=== PATIENT | female | born 1985 | race American Indian/Alaskan Native ===

== ENCOUNTER 2018-02-10 10:27 | Emergency (ER) | payer OTHER ==
[2018-02-10 10:34] VITALS: BP 130/84
[2018-02-10] MEDS ORDERED: ANTIVERT PO ONE (12:08)
--- NOTE | 2018-02-10 12:08 | Emergency Department Report ---
Minor Respiratory - HPI Chief Complaint: Dizziness Stated Complaint: BLURRED VISION Time Seen by Provider: 02/10/18 12:07 Duration: 1 week Pain Location: Ear (ear ache) Minor Respiratory: Yes Rhinorrhea (nasal congestion), Yes Able to Tolerate Fluids, Yes Ear Pain (bilateral at 2/10 and aching in), Yes Cough (dry cough), No Sore Throat, No Sick Contacts, No Hemoptysis, No Chest Pain, No Shortness of Breath, No Fever (dizziness) Other History: This is a 32-year-old female presents to the emergency room she says she is a patient of Dr. Solorzano and she went to the office today but he was closed. She is experiencing dizziness with upper respiratory symptoms and reports that she feels like the room is spinning around so she came to the emergency room to be treated. Pain is 2/10 to both ears and achy. She reports clogged ear sensation. [id number]-[id number] medication taken without any relief. Patient says that she has slight headache on and off but none now. Denies any shortness of breath or chest pain. Denies any nausea or vomiting or visual difficulties. Reports facial pressure ED Review of Systems ROS: Stated complaint: BLURRED VISION Other details as noted in HPI Constitutional: malaise, other (dizziness). denies: chills, fever Eyes: denies: eye pain, eye discharge, vision change ENT: ear pain, congestion. denies: throat pain, epistaxis Respiratory: cough. denies: shortness of breath, SOB with exertion, SOB at rest , stridor, wheezing Cardiovascular: denies: chest pain, palpitations, edema, syncope Gastrointestinal: denies: abdominal pain, nausea, vomiting, diarrhea Genitourinary: denies: urgency, dysuria, hematuria, discharge Musculoskeletal: denies: back pain, joint swelling, arthralgia, myalgia Skin: denies: rash, lesions Neurological: vertigo. denies: headache, weakness, paresthesias, abnormal gait ED Past Medical Hx - Past Medical History Previous Medical History?: No - Surgical History Past Surgical History?: No - Family History Family history: hypertension - Social History Smoking Status: Never Smoker Substance Use Type: None - Medications Home Medications: Home Medications Medication Instructions Recorded Confirmed Last Taken Type Azithromycin [Zithromax Z-BURT] 250 mg PO DAILY 5 Days #1 pkg 02/10/18 Unknown Rx Cetirizine HCl [ZyrTEC] 10 mg PO QDAY 21 Days #21 02/10/18 Unknown Rx tab.rapdis Fluticasone [Flonase] 1 spray NS QDAY 14 Days #1 bottle 02/10/18 Unknown Rx predniSONE [Deltasone] 50 mg PO QDAY 3 Days #3 tab 02/10/18 Unknown Rx Minor Respiratory Exam - Exam General: Vital signs noted. No distress. Alert and acting appropriately. This is a 32-year-old female well-nourished well-developed in no acute distress. HEENT: Yes Moist Mucous Membranes (uvula midline and oral airways patent), Yes Rhinorrhea (nasal congestion with erythema and clear drainage), Yes Maxillary Tenderness (tended to palpate bilaterally), No Pharyngeal Erythema, No Pharyngeal Exudates, No Conjuctival Injection, No Frontal Tenderness Ear: Neither TM Bulge (bilateral TM congested without erythema), Neither TM Erythema, Neither EAC Pain, Neither EAC Discharge Neck: Yes Supple (full range of motion and no C-spine tenderness), No Adenopathy Lungs: Yes Good Air Exchange, Yes Cough (right cough), No Wheezes, No Ronchi, No Stridor, No Labored Respirations, No Retractions, No Use of Accessory Muscles , No Other Abnormal Lung Sounds Heart: Yes Regular (regular rate and rhythm. Orthostatic blood pressure is normal.) Abdomen: Yes Normal Bowel Sounds (abdomen bowel sounds in all quadrants), No Tenderness (nontender to palpate in all quadrants) Skin: No Rash, No Edema Neurologic: Alert and oriented, no deficits. Patient alert and oriented 3, GCS is 15, no facial droop and an speech is clear and fluid. Gait is normal, negative Romberg and pronator drift. No motor or sensory deficit and she ambulates without any difficulties. Reflexes are normal Musculoskeletal: Unremarkable. No cce. + 2 pulses in all extremities, no neurovascular compromise ED Course Vital Signs 02/10/18 10:32 Temperature 98.9 F Pulse Rate 75 Respiratory 16 Rate Blood Pressure 130/84 O2 Sat by Pulse 99 Oximetry Vital Signs 02/10/18 10:32 Temperature 98.9 F Pulse Rate 75 Respiratory 16 Rate Blood Pressure 130/84 O2 Sat by Pulse 99 Oximetry See orthostatic vital signs on their vital signs results. - Reevaluation(s) Reevaluation #1: 02/10/18 13:02 Patient given Antivert 50 mg by mouth for vertigo with some relief. ED Medical Decision Making - Medical Decision Making This is a 32-year-old female here report that she is having upper respiratory symptoms and she is using [id number] medication is not helping. She is also reporting that she is having dizziness and feeling like the room is spinning around and this is been ongoing. She does have a primary care doctor but her doctor's office was closed today per patient Patient was seen and evaluated by myself. Her physical exam is normal except she has congested TMs without any erythema, nasal mucosa congested erythema with clear drainage and mattress sinus is tender to palpate bilaterally. She has dry cough and her lungs are clear. Patient is neurologically intact. Orthostatic vital signs are stable and she was given Antivert with some relief of her dizziness. I discussed the patient that she has a sinus infection and I will put her a medication to help but for dizziness persist that she needs to go Dr. Solorzano's office in 3 days for follow-up visit and possible CT scan of the head. She voiced understanding. I told her that her primary care can ordered outpatient CT scan. At this time, I think patient vertigo is coming from her sinus infection due to vestibular imbalance. Patient discharged home in stable condition, vital signs are stable and she feels better. Discharged home with prescription for prednisone, Z-Burt, Antivert, Zyrtec and Flonase. She understands that she needs to see Dr. Solorzano who is her primary care in 3 days. Critical care attestation.: If time is entered above; I have spent that time in minutes in the direct care of this critically ill patient, excluding procedure time. ED Disposition Clinical Impression: Vertigo Sinusitis, acute Qualifiers: Sinusitis location: unspecified location Recurrence: not specified as recurrent Qualified Code(s): J01.90 - Acute sinusitis, unspecified Vestibular disequilibrium Qualifiers: Laterality: bilateral Qualified Code(s): H83.2X3 - Labyrinthine dysfunction, bilateral Disposition: - TO HOME OR SELFCARE Is pt being admited?: No Does the pt Need Aspirin: No Condition: Stable Instructions: Vertigo (ED), Sinusitis (ED) Additional Instructions: Please follow up with Dr. Solorzano in 3 days for evaluation He had a sinus infection antecedent cause you to have vertigo so we will try putting on sinus medication to include antibiotic and if this does not work then you need to definitely see Dr. Solorzano for outpatient CT scan of the head. If he condition worsens and year dizziness increases with headache, blurred vision nausea and her vomiting , please return to the emergency room RADHA Take medication as prescribed Flushing nostrils out with saline nasal spray and increase her fluid intake Referrals: JESI LECHUGA MD [Staff Physician] - 02/13/18 PRIMARY CAREMD [Primary Care Provider] - 02/13/18 Forms: Work/School Release Form(ED)
== END 2018-02-10 13:20 | disposition home or self-care (01) ==
LOC: ED 10:27
DX: R42 Dizziness and giddiness (principal); J01.90 Acute sinusitis, unspecified; H83.2X3 Labyrinthine dysfunction, bilateral
CPT/HCPCS: 99282